=== PATIENT | female | born 1950 | race Caucasian/White ===

== ENCOUNTER → 2016-06-23 | Outpatient (CLI) | payer OTHER ==
--- NOTE | 2016-06-23 10:58 | US ---
Thyroid Sonography Clinical History: 66-year-old female who had a thyroidectomy in 1993 for Graves' disease. The patien t indicates that the surgeon did not take all of the tissue, and she has not received iodine treatmen t. She had a palpable mass in the neck with a possible underlying scar. ICD 10 Diagnostic Code: R22.1. Technique: A linear 12 MHz transducer was used to sonographically evaluate the thyroid bed, and curso ry evaluation of the cervical lymph node chains was also performed. Comparison Study: None available. Findings: There is no remnant thyroid tissue observed anterior or to the right or to the left of the tracheal air column. There is no solid or cystic mass, and there is no evidence of adenopathy. Impression: Status post thyroidectomy, with no residual thyroid tissue or mass or adenopathy observe d. If there is further clinical concern regarding an occult mass, contrast-enhanced CT imaging of the ne ck could be considered.
== END ==
LOC: BRMIMAGING 08:08
PROVIDERS: ATTEND Physician Assistant
DX: R22.1 Localized swelling, mass and lump, neck (principal); E05.00 Thyrotoxicosis with diffuse goiter without thyrotoxic crisis or storm

== ENCOUNTER → 2018-03-22 | Outpatient (CLI) | payer OTHER | LOC: BRMIMAGING 12:42 | PROVIDERS: ATTEND Physician Assistant | DX: Z12.31 Encounter for screening mammogram for malignant neoplasm of breast (principal); Z13.820 Encounter for screening for osteoporosis; M81.0 Age-related osteoporosis without current pathological fracture; E28.39 Other primary ovarian failure; E03.9 Hypothyroidism, unspecified ==